=== PATIENT | male | born 1970 | race Caucasian/White ===

== ENCOUNTER 2018-02-12 08:46 | Day surgery (SDC) | payer BC ==
[~2018-02-12] VITALS: Ht 182.9 cm; Wt 97.3 kg
[~2018-02-12 08:46] MED LIST: NORCO 325 MG-7.1 TAB PO
[2018-02-12 09:00] VITALS: BP 187/104; PULSE 71; TEMP 98.2
[2018-02-12 11:55] VITALS: BP 115/83; PULSE 78; TEMP 97.7
[2018-02-12 12:00] VITALS: BP 110/83; PULSE 80
[2018-02-12 12:04] VITALS: BP 115/83; PULSE 75
== END 2018-02-12 12:25 | disposition home or self-care (01) ==
LOC: SDCO 08:46
DX: Z12.11 Encounter for screening for malignant neoplasm of colon (principal); I10 Essential (primary) hypertension; Z80.0 Family history of malignant neoplasm of digestive organs
CPT/HCPCS: J2250; J2405; J3010; J7030

== ENCOUNTER 2023-10-19 06:58 | Day surgery (SDC) | payer BC ==
[~2023-10-19] VITALS: Ht 183 cm; Wt 94.3 kg
[2023-10-19] VITALS (15 sets, daily range): BP systolic 114–142; BP diastolic 79–101; PULSE 50–63; TEMP 97.4
[2023-10-19] MEDS ORDERED: 1/2 NS 1,000 ML IV SCH (07:45)
[2023-10-19] MEDS ORDERED: CRESTOR40 MG PO (08:14)
[2023-10-19] MEDS ORDERED: COZAAR 50MG50 MG/TAB PO (08:15)
[2023-10-19] MEDS ORDERED: ASPIRIN 81M81 MG/TA2 PO (08:15)
[2023-10-19 08:31] LABS: HEMATOCRIT 41.9 % (42.0-52.0); HEMOGLOBIN 14.5 g/dl (13.5-18.0); MEAN CELL VOLUME 90 fl (80.0-100.0); MEAN CORPUSCULAR HEMOGLOBIN 31 pg (27-31); MEAN CORPUSCULAR HGB CONC 35 g/dl (33.0-37.0); MEAN PLATELET VOLUME 8.5 fl (7.4-10.4); PLATELET COUNT 322 K/mm3 (130-400); RED BLOOD COUNT 4.66 M/mm3 (4.20-5.60); REDCELL DISTRIBUTION WIDTH-CV 12.2 % (11.5-14.5)
[2023-10-19 09:05] LABS: INR 1.1 (0.8-3.0); PROTHROMBIN TIME 11.5 SECONDS (9.7-12.8)
[2023-10-19 09:07] LABS: PARTIAL THROMBOPLASTIN TIME 33.5 SECONDS (26.0-37.0)
--- NOTE | 2023-10-19 09:15 | NUR ---
Patient to procedure,report to YAA Max.
--- NOTE | 2023-10-19 09:31 | NUR ---
Please see merge documentation for record ofinterventions, vitals and medications administered during left heart cath with Dr. Pena.
[2023-10-19] MEDS ORDERED: niCARdipine (Cath Lab) 100 MCG/ML 10 ML VIAL IA SCH (09:34)
[2023-10-19] MEDS ORDERED: Heparin 1,000 UNITS/ML 10 ML Multi-Dose VIAL IV SCH (09:34)
[2023-10-19 09:39] LABS: CALCIUM 8.9 mg/dL (8.4-10.2); POTASSIUM 4.7 mEq/L (3.5-4.5)
[2023-10-19 09:51] LABS: CREATININE, serum 0.87 mg/dL (0.72-1.25)
[2023-10-19] MEDS ORDERED: Midazolam 2 MG/2 ML VIAL IV SCH (10:07)
[2023-10-19] MEDS ORDERED: fentaNYL 50 MCG/ML 2 ML VIAL IV SCH (10:08)
[2023-10-19] MEDS ORDERED: Iohexol 350 - 100 ML VIAL INCOR ONE (10:09)
--- NOTE | 2023-10-19 10:40 | NUR ---
Patient returned from procedure,report from Aruna Max.patient up to bathroom when this nurse entered room to obtaine report from Aruna Max.Per Aruna Max "it is ok for patient to be up while still in her care."Patient assisted back to bed by Aruna Max.This nurse assumed cares of patient. Will continue to monitor patient.
--- NOTE | 2023-10-19 10:42 | NUR ---
Enoch was transferred back to express unit rm [address] Pena. TR band to rt wrist, cms intact distal. Pt was amb to toilet in room 14 to void, he was steady on his feet. Pt hooked up for post procedure monitoring, bs report and hand off of care to Carley MON.
--- NOTE | 2023-10-19 11:45 | NUR ---
Spoke with Pili,Cardiology nurse when she came to unit requesting activity order for patient.Per Pili,Rn is ok for up to BR with assist post cath.
[2023-10-19] MEDS ORDERED: LIPITOR 80MG80 MG PO (13:47)
[2023-10-19] MEDS ORDERED: EPA FISH OIL1 SGL PO (13:48)
--- NOTE | 2023-10-19 14:18 | NUR ---
Discharge instructions given to pt.Pt verbalizes understanding.Dressing ti right radial site observed clean,dry,intact,and soft to touch.Pt escorted out via wheelchair by this nurse.
== END 2023-10-19 15:02 ==
LOC: COL.CAR 06:58
PROVIDERS: Internal Medicine Cardiovascular Disease
DX: R94.39 Abnormal result of other cardiovascular function study (principal)
CPT/HCPCS: C1769; J1644; J2250; J2404; J3010; Q9967